=== PATIENT | male | born 1965 | race Two or more races ===

== ENCOUNTER 2017-08-21 09:45 | Emergency (ER) | payer BC, OTHER, SELFPAY ==
[~2017-08-21] VITALS: Ht 165.1 cm; Wt 77.5 kg
[2017-08-21 09:56] VITALS: BP 128/82
[2017-08-21] MEDS ORDERED: PHEN100T90 PO (10:34)
[2017-08-21] MEDS ORDERED: SODIUM CHLORIDE FLUSH 10ML SYR IVF ONE (11:00)
[2017-08-21 11:20] LABS: BASOPHILS # (AUTO) 0.03 x10^3/uL (0-0.1); BASOPHILS % (AUTO) 0 % (0-1); EOSINOPHILS # (AUTO) 0.03 x10^3/uL (0-0.4); EOSINOPHILS % (AUTO) 0 % (1-7); LYMPHOCYTES # (AUTO) 1.57 x10^3/uL (1-3.4); LYMPHOCYTES % (AUTO) 12 % (22-44); MD NO; MEAN CORPUSCULAR HEMOGLOBIN 30.6 pg (27.5-34.5); MEAN CORPUSCULAR VOLUME 89.8 fL (81-97); MONOCYTES # (AUTO) 1.09 x10^3/uL (0.2-0.8); MONOCYTES % (AUTO) 8 % (2-9); NEUTROPHILS # (AUTO) 10.79 x10^3/uL (1.8-6.8); NEUTROPHILS % (AUTO) 80 % (42-75); PLATELET COUNT 202 x10^3/uL (130-400); RED BLOOD COUNT 4.73 x10^6/uL (4.38-5.82)
[2017-08-21 11:23] LABS: MICROSCOPIC AUTO
[2017-08-21 11:25] LABS: ALBUMIN 3.6 g/dL (3.4-5.0); ANION GAP 4 mmol/L (5-15); CALCIUM 9.2 mg/dL (8.5-10.1); CHLORIDE 103 mmol/L (98-107); CREATININE 1.08 mg/dL (0.7-1.3)
[2017-08-21 11:30] LABS: CULTURE INDICATED? YES
[2017-08-21] MEDS ORDERED: CEFTRIAXONE 1,000 MG ONE (11:48)
[2017-08-21] MEDS ORDERED: LIDOCAINE 1%, 10ML ONE (11:48)
[2017-08-21] MEDS ORDERED: CEFTRIAXONE PMX 1GM/50ML 50 ML IV ONE (12:00)
[2017-08-21] MEDS ORDERED: CEFTRIAXONE 1,000 MG IM ONE (12:00)
== END 2017-08-21 12:39 | disposition home or self-care (01) ==
LOC: ED 10:47
DX: N30.00 Acute cystitis without hematuria (principal); D72.829 Elevated white blood cell count, unspecified
CPT/HCPCS: 36415; 80048; 81001; 82040; 85025; 87077; 87086; 87186; 96372; 99284; J0696

== ENCOUNTER 2019-01-10 12:43 | Outpatient (CLI) | payer BC ==
[~2019-01-10 12:43] MED LIST: PHEN100T90 PO
== END 2019-01-10 23:59 | disposition home or self-care (01) ==
LOC: RAD 12:43
PROVIDERS: ATTEND Registered Nurse
DX: R10.829 Rebound abdominal tenderness, unspecified site (principal)
CPT/HCPCS: 74018; 76770